=== PATIENT | female | born 1965 | race Hispanic/Latino ===

== ENCOUNTER 2016-11-06 13:08 | Outpatient (CLI) | payer OTHER ==
--- NOTE | 2016-11-08 10:56 | Mammography Report ---
Comparison is made to a [facility] mammogram from 11/05/15. Bilateral asymmetries are more prominent than on the prior exam and require additional imaging. IMPRESSION: Bilateral asymmetries requiring additional imaging. BI-RADS 0--Needs Additional Imaging RECOMMENDATION: Recall for bilateral spot compression views and bilateral breast ultrasound if needed.
== END 2016-11-06 13:09 | disposition home or self-care (01) ==
LOC: SPVWC 13:08
PROVIDERS: ATTEND Obstetrics & Gynecology
DX: Z12.31 Encounter for screening mammogram for malignant neoplasm of breast (principal)
CPT/HCPCS: 77067; G0202

== ENCOUNTER 2016-12-04 11:30 | Outpatient (CLI) | payer OTHER ==
--- NOTE | 2016-12-04 12:33 | Mammography Report ---
BILATERAL DIGITAL DIAGNOSTIC MAMMOGRAM and RIGHT BREAST ULTRASOUND: 12/04/16 11:30:00 CLINICAL: Recalled for bilateral asymmetries. COMPARISON:11/06/16 screening FINDINGS: Bilateral spot compression views were performed. Satisfactory effacement of the left upper asymmetry. A right lower inner asymmetry persists on 2 views. Ultrasound of the lower inner right breast was performed and demonstrated normal fibroglandular and fatty structures. No mass, cyst or shadowing to correlate with the mammographic asymmetry. IMPRESSION: A probably benign right asymmetry. BI-RADS CATEGORY: 3 - - Probably Benign RECOMMENDATION: Six month followup right mammogram and ultrasound if needed. ACR BI-RADS MAMMOGRAPHIC CODES: 0 = Needs additional imaging evaluation; 1 = Negative; 2 = Benign; 3 = Probably benign; 4 = Suspicious; 5 = Malignant; 6 = Known biopsy-proven malignancy COMMENT: 1. Dense breast tissue, i.e., adenosis, fibrocystic changes, etc., may obscure an underlying neoplasm. 2. Approximately 10% of cancers are not detected with mammography. 3. A negative mammography report should not delay biopsy if a clinically suspicious mass is present. COMMENT: Patient follow-up letters are generated via our [employer] application.
== END 2016-12-04 11:31 | disposition home or self-care (01) ==
LOC: SPVWC 11:30
PROVIDERS: ATTEND Obstetrics & Gynecology
DX: N64.89 Other specified disorders of breast (principal)
CPT/HCPCS: 76642; G0204; 77066